=== PATIENT | male | born 1995 | race Caucasian/White ===

== ENCOUNTER 2018-02-15 12:52 | Emergency (ER) | payer BC ==
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
[2018-02-15 13:09] VITALS: TEMP 98.3; BMI 27.0
[2018-02-15] MEDS ORDERED: ACETAMINOPHEN 325 MG TABLET (FP) PO ONE (13:21)
[2018-02-15] MEDS ORDERED: ACETAMINOPHEN 325 MG TABLET (FP) ONE (13:25)
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
[2018-02-15 14:34] VITALS: BP 119/67; PULSE 85
== END 2018-02-15 14:34 | disposition home or self-care (01) ==
LOC: FER 12:52
DX: S09.90XA Unspecified injury of head, initial encounter (principal); W52.XXXA Crushed, pushed or stepped on by crowd or human stampede, initial encounter; Y93.89 Activity, other specified; Y92.89 Other specified places as the place of occurrence of the external cause
CPT/HCPCS: 70450-TC; 99282-25

== ENCOUNTER 2020-06-05 14:58 | Emergency (ER) | payer BC ==
[2020-06-05 15:21] VITALS: BP 146/82; PULSE 92; TEMP 97.9; BMI 25.5
== END 2020-06-05 16:20 | disposition home or self-care (01) ==
LOC: FER 14:58
DX: J02.9 Acute pharyngitis, unspecified (principal); M79.10 Myalgia, unspecified site; R11.2 Nausea with vomiting, unspecified
CPT/HCPCS: 87880; 99283-25; C9803; U0003